=== PATIENT | male | born 1990 | race Two or more races ===

== ENCOUNTER 2017-11-10 17:38 | Emergency (ER) | payer SELFPAY ==
--- NOTE | 2017-11-10 18:23 | NUR ---
PT ELOPED FROM FACILITY
== END 2017-11-10 18:23 | disposition left against medical advice (07) ==
LOC: ER 17:42 → EDBD 17:42 → ER 18:23
DX: Z53.21 Procedure and treatment not carried out due to patient leaving prior to being seen by health care provider (principal)